=== PATIENT | male | born 1965 | race Caucasian/White ===

== ENCOUNTER 2016-04-12 16:15 | Emergency (ER) | payer OTHER ==
[2016-04-12 17:11] VITALS: BP 114/72
--- NOTE | 2016-04-12 17:29 | UC ---
Abdominal Pain Male HPI - HPI Summary HPI Summary: for past week has noted intermittent "quivering" of a muscle in epigastric area. He can actually SEE it quiver. He has checked his pulse while it was happening, and pulse is normal. Lasts up to a minute, then goes away. No pain. No SOB. No palpitations. No indigestion. He had an ETT a few years ago for CP and it was normal. No history of heart dz or hypertension. No strong FH heart disease. He wants to be sure the quivering is not his heart. - History of Current Complaint Chief Complaint: UCAbdominalPain Stated Complaint: ABDOMINAL MUSCLE SPASM Time Seen by Provider: 04/12/16 17:09 Hx Obtained From: Patient, Family/Air Quality Consultant - Onset/Duration: Gradual Onset, Lasting Weeks - 1 Timing: Intermittent Episodes Lasting: - seconds to a minute Severity Initially: Mild Severity Currently: None Location: Epigastric Radiates: No Character: Other - "muscle quivers, like when your eye twitches" Aggravating Factor(s):: Nothing Alleviating Factor(s): Spontaneous Resolution Associated Signs And Symptoms: Positive: Negative. Negative: Dizzy, Nausea, Vomiting - Risk Factors Testicular Torsion: Negative Cardiac Risk Factors: Elevated Lipids - Allergies/Home Medications Allergies/Adverse Reactions: Allergies Allergy/AdvReac Type Severity Reaction Status Date / Time No Known Allergies Allergy Verified 04/12/16 17:06 Home Medications: Home Medications Atorvastatin* [Lipitor*] 20 mg PO DAILY 04/12/16 [History Confirmed 04/12/16] PMH/Surg Hx/FS Hx/Imm Hx Endocrine History Of: Reports: Dyslipidemia - Surgical History Surgical History: Yes Surgery Procedure, Year, and Place: deviated septum age 15 yo - Family History Known Family History: Positive: Other - uncle with colon CA; CVA - Social History Occupation: Employed Full-time Lives: With Family Alcohol Use: Rare Substance Use Type: None Smoking Status (MU): Former Smoker Type: Cigarettes Have You Smoked in the Last Year: No When Did the Patient Quit Smoking/Using Tobacco: 2006 - Immunization History Most Recent Influenza Vaccination: Not the 2013/2014 season Most Recent Tetanus Shot: 2007; maybe 2010 as well Review of Systems Constitutional: Negative Skin: Negative Eyes: Negative ENT: Negative Respiratory: Negative Cardiovascular: Other - fluttering epigastrium Gastrointestinal: Negative Genitourinary: Negative Motor: Negative Neurovascular: Negative Musculoskeletal: Negative Neurological: Negative Psychological: Negative All Other Systems Reviewed And Are Negative: Yes Physical Exam Triage Information Reviewed: Yes Appearance: Well-Appearing, No Pain Distress, Well-Nourished Vital Signs: Initial Vital Signs Temp 98.7 F 04/12/16 16:51 Pulse 53 04/12/16 16:51 Resp 16 04/12/16 16:51 BP 114/72 04/12/16 16:51 Vital Signs Reviewed: Yes Eye Exam: Normal ENT Exam: Normal Respiratory Exam: Normal Cardiovascular Exam: Normal Cardiovascular: Positive: No Murmur, Pulses Normal, Brisk Capillary Refill, Bradycardia - 49 on ekg Abdominal Exam: Normal Abdomen Description: Positive: Nontender, No Organomegaly, Soft Musculoskeletal Exam: Normal Neurological Exam: Normal Psychological Exam: Normal Skin Exam: Normal Diagnostics - Laboratory Diagnostic Studies Completed/Ordered: EKG: sinus gabriela, no other abnormalities Abd Pain Male Course/Dx - Differential Dx/Clinical Impression Provider Diagnoses: muscle twitch Discharge - Discharge Plan Condition: Stable Disposition: HOME Patient Education Materials: Muscle Spasm (ED) Referrals: Raj Braga DO [Primary Care Provider] - Additional Instructions: Your EKG is normal. Follow up with your primary care doctor. YOur description of this irritation does not suggest heart problems, but if you have spells that cause pain, pressure, nausea, sweating, arm pain, or heart palpitations, go to the ER.
== END 2016-04-12 17:31 | disposition home or self-care (01) ==
LOC: UCCORT 16:15
DX: M62.838 Other muscle spasm (principal); E78.5 Hyperlipidemia, unspecified; Z87.891 Personal history of nicotine dependence
CPT/HCPCS: 93005; 99211; G0463

== ENCOUNTER 2016-08-21 17:48 | Emergency (ER) | payer OTHER ==
[2016-08-21 18:23] VITALS: BP 109/62
--- NOTE | 2016-08-21 18:41 | UC ---
Skin Complaint HPI - HPI Summary HPI Summary: patient has had red scaly patches on his hands for the last year, the areas have become thickend and cracked, has been using westcort cream with out good results. - History of Current Complaint Chief Complaint: UCSkin Time Seen by Provider: 08/21/16 18:20 Stated Complaint: FINGER INFECTION Hx Obtained From: Patient Onset/Duration: Gradual Onset, Still Present Timing: Constant Onset Severity: Moderate Current Severity: Severe Location: Hand (Right), Hand (Left) Character: Swelling, Pruritus, Pain, Redness Aggravating: Humidity, Touch Alleviating: Nothing - Allergy/Home Medications Allergies/Adverse Reactions: Allergies Allergy/AdvReac Type Severity Reaction Status Date / Time No Known Allergies Allergy Verified 08/21/16 18:14 Home Medications: Home Medications Ketorolac Tromethamine (Ophth) [Acuvail] 1 drop QID 08/21/16 [History Confirmed 08/21/16] Ofloxacin 0.3%(Ophth)(Nf) [Ocuflox OPTH 0.3%(NF)] 1 drop QID 08/21/16 [History Confirmed 08/21/16] prednisoLONE 1% OPHTH.SUSP* [Pred Forte 1%*] 1 drop .SEE ORDER QID 08/21/16 [ History Confirmed 08/21/16] Review of Systems Constitutional: Negative Skin: Other - red thickened scaly patches Eyes: Negative ENT: Negative Respiratory: Negative Cardiovascular: Negative Gastrointestinal: Negative Genitourinary: Negative Motor: Negative Neurovascular: Negative Musculoskeletal: Negative Neurological: Negative Psychological: Negative All Other Systems Reviewed And Are Negative: Yes PMH/Surg Hx/FS Hx/Imm Hx Previously Healthy: Yes - Surgical History Surgical History: Yes Surgery Procedure, Year, and Place: deviated septum age 15 yo - Family History Known Family History: Positive: Other - uncle with colon CA; CVA - Social History Alcohol Use: Daily Alcohol Amount: 2 beers Substance Use Type: None Smoking Status (MU): Former Smoker Type: Cigarettes Have You Smoked in the Last Year: No When Did the Patient Quit Smoking/Using Tobacco: 2006 - Immunization History Most Recent Influenza Vaccination: Not the 2013/2014 season Most Recent Tetanus Shot: 2007; maybe 2010 as well Physical Exam Triage Information Reviewed: Yes Appearance: Well-Appearing, Well-Nourished, Pain Distress Vital Signs: Initial Vital Signs Temp 99.4 F 08/21/16 18:01 Pulse 54 08/21/16 18:01 Resp 16 08/21/16 18:01 BP 109/62 08/21/16 18:01 Pulse Ox 98 08/21/16 18:01 Vital Signs Reviewed: Yes Eye Exam: Normal Eyes: Positive: Conjunctiva Clear ENT: Positive: Normal ENT inspection, Hearing grossly normal, Pharynx normal, TMs normal Dental Exam: Normal Neck exam: Normal Neck: Positive: Supple, Nontender, No Lymphadenopathy Respiratory Exam: Normal Respiratory: Positive: Chest non-tender, Lungs clear Cardiovascular Exam: Normal Cardiovascular: Positive: RRR, No Murmur, Pulses Normal Abdominal Exam: Normal Abdomen Description: Positive: Nontender, No Organomegaly, Soft Bowel Sounds: Positive: Present Musculoskeletal Exam: Normal Neurological Exam: Normal Neurological: Positive: Alert, Muscle Tone Normal Psychological Exam: Normal Skin: Positive: rashes - red scally crakcing areas on all knuckles, cracked red and swollen on the lateral side of right index finger. Course/Dx - Course Course Of Treatment: hx obtained, exam performed, meds reviewed, treated for ezcema and given referral to DERM - Differential Diagnoses - Skin Complaint Differential Diagnoses: Abscess, Cellulitis, Contact Dermatitis, Eczema - Diagnoses Provider Diagnoses: dyshidrotic eczema of both hands Discharge - Discharge Plan Condition: Stable Disposition: HOME Prescriptions: Cephalexin CAP* [Keflex CAP*] 500 mg PO BID #14 cap Clobetasol 0.05% OINT* 1 applic TOPICAL BID #1 tube Patient Education Materials: Dyshidrotic Eczema (ED) Referrals: Samantha Conti [Medical Doctor] - Raj Braga DO [Primary Care Provider] - Additional Instructions: 1. Use the cream as prescribed. 2. Take the antibiotic 3. Follow up with dermatology
== END 2016-08-21 18:42 | disposition home or self-care (01) ==
LOC: UCCORT 17:48
DX: L30.1 Dyshidrosis [pompholyx] (principal)
CPT/HCPCS: 99212; G0463

== ENCOUNTER 2017-03-18 12:17 | Emergency (ER) | payer OTHER ==
[2017-03-18 12:36] VITALS: BP 123/75
--- NOTE | 2017-03-18 12:45 | UC ---
Respiratory Complaint HPI - HPI Summary HPI Summary: cough, congestion, fever/chills achy all over for past day taking robitussin and ibuprofen with some relief of cough. 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 - History of Current Complaint Chief Complaint: UCGeneralIllness Stated Complaint: ACHY, EAR PAIN, COUGH Time Seen by Provider: 03/18/17 12:26 Hx Obtained From: Patient Onset/Duration: Sudden Onset Severity Initially: Moderate Severity Currently: Moderate Associated Signs And Symptoms: Positive: Chills, Nasal Congestion - Allergies/Home Medications Allergies/Adverse Reactions: Allergies Allergy/AdvReac Type Severity Reaction Status Date / Time No Known Allergies Allergy Verified 08/21/16 18:14 Home Medications: Home Medications GuaiFENesin DM sugar free* [Robitussin DM sugar free*] 10 ml PO Q6H PRN [History Confirmed 03/18/17] Ibuprofen TAB* [Advil TAB*] 600 mg PO Q6H PRN 03/18/17 [History Confirmed ] PMH/Surg Hx/FS Hx/Imm Hx Previously Healthy: Yes Endocrine History: Dyslipidemia - Surgical History Surgical History: Yes Surgery Procedure, Year, and Place: Bilateral Cataract Extraciton, 08/2016, [place]; Deviated Septum, ~1986 - Family History Known Family History: Positive: Other - uncle with colon CA; CVA - Social History Alcohol Use: Daily Alcohol Amount: 2 beers Substance Use Type: None Smoking Status (MU): Former Smoker Type: Cigarettes Have You Smoked in the Last Year: No When Did the Patient Quit Smoking/Using Tobacco: 2005 - Immunization History Most Recent Influenza Vaccination: Not the 2016/2017 Season Most Recent Tetanus Shot: 2007; maybe 2010 as well Review of Systems Constitutional: Fever, Chills, Fatigue Skin: Negative Eyes: Negative ENT: Sore Throat, Ear Ache, Nasal Discharge, Sinus Congestion Respiratory: Cough - nonproductive Cardiovascular: Negative Gastrointestinal: Negative Genitourinary: Negative Musculoskeletal: Arthralgia, Myalgia Psychological: Negative Is Patient Immunocompromised?: No All Other Systems Reviewed And Are Negative: Yes Physical Exam Triage Information Reviewed: Yes Appearance: Ill-Appearing Vital Signs: Initial Vital Signs Temp 98.5 F 03/18/17 12:28 Pulse 80 03/18/17 12:28 Resp 16 03/18/17 12:28 BP 123/75 03/18/17 12:28 Pulse Ox 100 03/18/17 12:28 Vital Signs Reviewed: Yes Eye Exam: Normal ENT: Positive: Pharyngeal erythema, Nasal congestion, TM bulging - left, Hoarse voice Neck: Positive: Supple Respiratory Exam: Normal Cardiovascular Exam: Normal Psychological Exam: Normal Skin Exam: Normal UC Diagnostic Evaluation - Laboratory O2 Sat by Pulse Oximetry: 100 Respiratory Course/Dx - Course Course Of Treatment: flu swab done by nurse - negative for flu. sinusitis/flu symptoms. increase fluid intake daily while on abx to prevent dehydration. take abx as directed with food to reduce gi upset. continue robitussin every 4 hours prn cough/congestion. continue ibuprofen every 6 hours prn for pain/ fever. f/u pcp 1 week if symptoms not resolving or getting worse - Differential Dx/Diagnosis Provider Diagnoses: sinusitis/flu symptoms Discharge - Discharge Plan Condition: Good Disposition: HOME Prescriptions: Amoxicillin PO (*) [Amoxicillin 875 MG (*)] 875 mg PO BID 10 Days #20 tab Patient Education Materials: Pharyngitis (ED), Sinusitis (ED) Forms: *Work Release Referrals: Raj Braga DO [Primary Care Provider] - 1 Week
== END 2017-03-18 13:13 | disposition home or self-care (01) ==
LOC: UCCORT 12:17
DX: J32.9 Chronic sinusitis, unspecified (principal); R05 Cough; R50.9 Fever, unspecified; Z87.891 Personal history of nicotine dependence; Z72.89 Other problems related to lifestyle
CPT/HCPCS: 87502; 99212; G0463

== ENCOUNTER 2017-04-13 07:49 | Emergency (ER) | payer OTHER ==
[2017-04-13] MEDS ORDERED: Acetaminophen TAB* 325 MG PO ONE (08:23)
--- NOTE | 2017-04-13 09:30 | UC ---
FLU HPI - HPI Summary HPI Summary: 3 DAYS OF COUGH, CONGESTION, FEVER, MYALGIAS, MALAISE. NO FLU SHOT THIS SEASON. ALSO C/O LLQ PAIN FOR THE PAST 2 DAYS. FEELS GASSY AND BLOATED. LAST BM YESTERDAY WAS NORMAL. PASSING GAS. - History of Current Complaint Chief Complaint: UCGeneralIllness Stated Complaint: ABD/BACK PAIN,ST,SOB Time Seen by Provider: 04/13/17 08:02 Hx Obtained From: Patient Onset/Duration: Gradual Onset, Lasting Days, Still Present Severity Currently: Moderate Severity Initially: Moderate Pain Intensity: 8 Pain Scale Used: 0-10 Numeric Associated Signs & Symptoms: Positive: Fever, Myalgia, Cough, Nasal Congestion - Allergy/Home Medications Allergies/Adverse Reactions: Allergies Allergy/AdvReac Type Severity Reaction Status Date / Time No Known Allergies Allergy Verified 04/13/17 07:57 PMH/Surg Hx/FS Hx/Imm Hx Endocrine History: Dyslipidemia - Surgical History Surgical History: Yes Surgery Procedure, Year, and Place: Bilateral Cataract Extraciton, 08/2016, [place]; Deviated Septum, ~1986 - Family History Known Family History: Positive: Other - uncle with colon CA; CVA - Social History Alcohol Use: Occasionally Alcohol Amount: 2 beers Substance Use Type: None Smoking Status (MU): Former Smoker Type: Cigarettes Have You Smoked in the Last Year: No When Did the Patient Quit Smoking/Using Tobacco: 2005 - Immunization History Most Recent Influenza Vaccination: Not the 2016/2017 Season Most Recent Tetanus Shot: 2007; maybe 2010 as well Review of Systems Constitutional: Fever, Chills, Fatigue ENT: Nasal Discharge Respiratory: Cough Cardiovascular: Negative Gastrointestinal: Abdominal Pain Musculoskeletal: Myalgia Neurological: Headache All Other Systems Reviewed And Are Negative: Yes Physical Exam Triage Information Reviewed: Yes Appearance: Well-Nourished, Pain Distress - moderate Vital Signs: Initial Vital Signs Temp 101 F 04/13/17 07:54 Pulse 89 04/13/17 07:54 Resp 20 04/13/17 07:54 BP 115/70 04/13/17 07:54 Pulse Ox 100 04/13/17 07:54 Vital Signs Reviewed: Yes Eyes: Positive: Conjunctiva Clear ENT: Positive: Hearing grossly normal, Pharynx normal, TMs normal Neck: Positive: Supple, Nontender, No Lymphadenopathy Respiratory Exam: Normal Cardiovascular Exam: Normal Abdomen Description: Positive: Soft, CVA Tenderness (L), Other: - TTP LLQ, NO REBOUND OR RIGIDITY. Negative: CVA Tenderness (R), Distended Bowel Sounds: Positive: Present Musculoskeletal: Positive: No Edema Neurological: Positive: Alert Psychological: Positive: Age Appropriate Behavior Skin: Negative: rashes Diagnostics - Laboratory Diagnostic Studies Completed/Ordered: FLU SWAB POSITIVE INFLUENZA A. URINE DIP SP. GR. 1.020, 2+ PROTEIN, TRACE KETONES, TRACE BLOOD, 1+ BILI - Radiology CT ABD/PELVIS W/O CONTRAST Xray Interpretation: Positive (See Comments) - 1. Nonobstructive 2 mm right renal calculus. No other calculi of urinary significance. 2. Mild gaseous distention of the colon with colonic redundancy and retained stool. Radiology Interpretation Completed By: Radiologist Flu Course/Dx - Differential Dx/Diagnosis Provider Diagnoses: 1. INFLUENZA A. 2. NEPHROLITHIASIS Discharge - Discharge Plan Condition: Stable Disposition: HOME Prescriptions: HYDROcodone/ACETAMIN 5-325 MG* [[place] 5-325 TAB*] 1 tab PO Q6H PRN #20 tab MDD 4 PRN Reason: Pain Oseltamivir CAP* [Tamiflu CAP*] 75 mg PO BID #10 cap Tamsulosin CAP* [Flomax CAP*] 0.4 mg PO DAILY #7 cap Patient Education Materials: Kidney Stones (ED), Influenza (ED) Forms: *Work Release Referrals: Raj Braga DO [Primary Care Provider] - 2 Weeks Additional Instructions: SWAB POSITIVE INFLUENZA A. TAMIFLU TWICE DAILY FOR 5 DAYS. OTC MEDS NEEDED FOR FEVER, BODY ACHES. STAY WELL HYDRATED AND RESTED. SEEK FOLLOW-UP IF YOU ARE NOT IMPROVING EXPECTED. STRAIN YOUR URINE AND FOLLOW-UP WITH UROLOGY IF YOU CATCH A STONE. GO TO THE ER WITHOUT FAIL IF YOU DEVELOP FEVER, WORSENING PAIN, NAUSEA, INABILITY TO PASS GAS OR STOOL OR ANY OTHER CONCERNING SYMPTOMS. REPEAT YOUR URINE TEST AFTER YOUR SYMPTOMS HAVE RESOLVED TO ENSURE IT IS CLEAR.
--- NOTE | 2017-04-13 10:08 | RAD ---
INDICATION: Left lower quadrant pain. Hematuria COMPARISON: None TECHNIQUE: Noncontrast axial source images were acquired from the level hemidiaphragms to the symphysis pubis as part of CT imaging for renal stone. Lung bases: The lung bases are clear. Liver: The liver is normal in size. Noncontrast imaging shows no evidence of a hepatic mass or ductal dilatation. Gallbladder: There are no calcified gallstones. There is no evidence of wall thickening or pericholecystic fluid.. Spleen: The spleen is normal in size. The noncontrast CT appearance is normal. Pancreas: Noncontrast imaging shows no pancreatic mass or ductal dilitation. Adrenal glands: No masses are identified. Kidneys/Bladder: There is a nonobstructive 2 mm calculus in the lower pole of the right kidney. There are no other calcifications of urinary significance. Noncontrast imaging shows no evidence of a renal mass. The bladder is unremarkable.. Adenopathy: There is no evidence of intraperitoneal or retroperitoneal adenopathy. Evaluation is limited without oral contrast. Fluid collections: There are no free or localized fluid collections. Vessels: The aorta and iliac vessels are normal in caliber. There are no significant atherosclerotic changes. The IVC appears normal Pelvic organs: The prostate and seminal vesicles appear normal GI tract: Evaluation of the bowel is limited without oral contrast. The upper GI tract is unremarkable. There is mild gaseous distention of the colon with retained stool and significant colonic redundancy. The ileocecal valve and appendix appear normal. There are no obstructive findings. Soft tissues: No soft tissue abnormalities of the extraperitoneal abdomen or pelvis are identified. Osseous structures: There are no acute osseous findings. IMPRESSION: 1. Nonobstructive 2 mm right renal calculus. No other calculi of urinary significance. 2. Mild gaseous distention of the colon with colonic redundancy and retained stool.
[2017-04-13 10:13] VITALS: BP 110/72
== END 2017-04-13 11:08 | disposition home or self-care (01) ==
LOC: UCCORT 07:49
DX: N20.0 Calculus of kidney (principal); J11.1 Influenza due to unidentified influenza virus with other respiratory manifestations; Z72.89 Other problems related to lifestyle; Z87.891 Personal history of nicotine dependence
CPT/HCPCS: 74176; 81003; 87502; 99212; A9270-GY; G0463

== ENCOUNTER 2018-03-22 07:43 | Emergency (ER) | payer OTHER ==
[2018-03-22 07:58] VITALS: BP 124/74
--- NOTE | 2018-03-22 08:20 | ED ---
Respiratory - HPI Summary HPI Summary: 52 yr old male with the complaint of cough, runny nose, right ear pain, myalgias , chills, fatigue. Onset of symptoms on Sunday. No SOB. 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 Symptoms are moderate - History of Current Complaint Chief Complaint: UCRespiratory Stated Complaint: BODY ACHES, NAUSEA Time Seen by Provider: 03/22/18 08:03 Pain Intensity: 3 - Allergy/Home Medications Allergies/Adverse Reactions: Allergies Allergy/AdvReac Type Severity Reaction Status Date / Time No Known Allergies Allergy Verified 03/22/18 07:52 Home Medications: Home Medications D-Methorphan/PE/Acetaminophen [Theraflu Severe Cold Mult 20-10-500 mg] 1 macarena PO DAILY PRN 03/22/18 [History Confirmed 03/22/18] PMH/Surg Hx/FS Hx/Imm Hx - Surgical History Surgery Procedure, Year, and Place: Bilateral Cataract Extraciton, 08/2016, [place]; Deviated Septum, ~1986 Infectious Disease History: No Infectious Disease History: Denies: Traveled Outside the [place] in Last 30 Days - Family History Known Family History: Positive: Other - uncle with colon CA; CVA - Social History Alcohol Use: Occasionally Alcohol Amount: 2 wine nightly usually, but not lately Substance Use Type: Reports: None Smoking Status (MU): Former Smoker Type: Cigarettes Have You Smoked in the Last Year: No Review of Systems Positive: Chills Positive: Sore Throat, Ear Ache, Nasal Discharge Positive: Cough All Other Systems Reviewed And Are Negative: Yes Physical Exam Triage Information Reviewed: Yes Vital Signs On Initial Exam: Initial Vitals Temp Pulse Resp BP Pulse Ox 99.7 F 71 16 124/74 99 03/22/18 07:54 03/22/18 07:54 03/22/18 07:54 03/22/18 07:54 03/22/18 07:54 Vital Signs Reviewed: Yes Appearance: Positive: Well-Appearing, No Pain Distress Skin: Positive: Warm, Skin Color Reflects Adequate Perfusion Head/Face: Positive: Normal Head/Face Inspection Eyes: Positive: EOMI ENT: Positive: Pharyngeal erythema, Nasal congestion, TM red - right with effusion Neck: Positive: Nontender Respiratory/Lung Sounds: Positive: Clear to Auscultation, Breath Sounds Present Cardiovascular: Positive: RRR. Negative: Murmur Abdomen Description: Negative: Distended Musculoskeletal: Positive: Strength/ROM Intact Neurological: Positive: Sensory/Motor Intact, Alert, Oriented to Person Place, Time, CN Intact II-III Psychiatric: Positive: Normal - [place] Coma Scale Best Eye Response: 4 - Spontaneous Best Motor Response: 6 - Obeys Commands Best Verbal Response: 5 - Oriented Coma Scale Total: 15 Diagnostics - Vital Signs Vital Signs Temp Pulse Resp BP Pulse Ox 03/22/18 07:54 99.7 F 71 16 124/74 99 - Laboratory Lab Statement: Any lab studies that have been ordered have been reviewed, and results considered in the medical decision making process. Disposition - Course Course Of Treatment: 52 yr old with URI and right OM. Rx with Cefdinir - Diagnoses Provider Diagnoses: Otitis media Discharge - Sign-Out/Discharge Documenting (check all that apply): Patient Departure All imaging exams completed and their final reports reviewed: No Studies - Discharge Plan Condition: Good Disposition: HOME Prescriptions: Cefdinir [Cefdinir 300 MG CAP] 300 mg PO BID #20 cap Patient Education Materials: Ear Infection (ED) Referrals: Abiodun Biswas DO [Primary Care Provider] - 2 Days - Billing Disposition and Condition Condition: GOOD Disposition: Home
== END 2018-03-22 08:26 | disposition home or self-care (01) ==
LOC: UCCORT 07:43
DX: H66.91 Otitis media, unspecified, right ear (principal); Z87.891 Personal history of nicotine dependence
CPT/HCPCS: 99212; G0463

== ENCOUNTER 2018-06-21 07:03 | Emergency (ER) | payer OTHER ==
[2018-06-21 07:16] VITALS: BP 114/70
--- NOTE | 2018-06-21 07:26 | UC ---
Ear Complaint HPI - HPI Summary HPI Summary: 53 yo male with left otalgia and decreased hearing x 2 weeks hurts to lay down BRUNA has been acting up no f/c - History of Current Complaint Chief Complaint: UCEar Stated Complaint: LEFT EAR CONCERN Time Seen by Provider: 06/21/18 07:26 Hx Obtained From: Patient Onset/Duration: Gradual Onset, Lasting Weeks Severity Initially: Mild Severity Currently: Mild Pain Intensity: 4 Pain Scale Used: 0-10 Numeric Aggravating Factors: Nothing Alleviating Factors: Nothing Associated Signs/Symptoms: Positive: URI Symptoms Related History: Seasonal Allergies - Allergies/Home Medications Allergies/Adverse Reactions: Allergies Allergy/AdvReac Type Severity Reaction Status Date / Time No Known Allergies Allergy Verified 06/21/18 07:15 Home Medications: Home Medications Ibuprofen TAB* [Motrin TAB* 600 MG] 600 mg PO Q6H PRN 06/21/18 [History Confirmed 06/21/18] PMH/Surg Hx/FS Hx/Imm Hx Previously Healthy: Yes Endocrine History: Dyslipidemia - Surgical History Surgical History: Yes Surgery Procedure, Year, and Place: Bilateral Cataract Extraciton, 08/2016, [place]; Deviated Septum, ~1986 - Family History Known Family History: Positive: Other - uncle with colon CA; CVA, Non- Contributory - Social History Alcohol Use: Daily Alcohol Amount: 3 beers daily Substance Use Type: None Smoking Status (MU): Former Smoker Type: Cigarettes Have You Smoked in the Last Year: No When Did the Patient Quit Smoking/Using Tobacco: 2005 - Immunization History Most Recent Influenza Vaccination: Not the 2016/2017 Season Most Recent Tetanus Shot: 2007; maybe 2010 as well Review of Systems All Other Systems Reviewed And Are Negative: Yes Constitutional: Positive: Negative, Fever Eyes: Positive: Negative ENT: Positive: Ear Ache, Nasal Discharge, Sinus Congestion Respiratory: Positive: Negative Cardiovascular: Positive: Negative Gastrointestinal: Positive: Negative Genitourinary: Positive: Negative Motor: Positive: Negative Neurovascular: Positive: Negative Musculoskeletal: Positive: Negative Neurological: Positive: Negative Psychological: Positive: Negative Physical Exam Triage Information Reviewed: Yes Appearance: Well-Appearing, No Pain Distress, Well-Nourished Vital Signs: Initial Vital Signs Temp 97.8 F 06/21/18 07:12 Pulse 51 06/21/18 07:12 Resp 15 06/21/18 07:12 BP 114/70 06/21/18 07:12 Pulse Ox 100 06/21/18 07:12 Vital Signs Reviewed: Yes Eyes: Positive: Conjunctiva Clear ENT: Positive: Nasal congestion, Nasal drainage, Uvula midline. Negative: Hearing grossly normal, TMs normal - left TM RETRACTED, TM bulging, TM dull, TM red, Tonsillar swelling, Tonsillar exudate, Sinus tenderness Dental Exam: Normal Neck: Positive: Supple, Nontender, No Lymphadenopathy Respiratory: Positive: Lungs clear, Normal breath sounds, No respiratory distress, No accessory muscle use Cardiovascular: Positive: RRR, No Murmur Musculoskeletal: Positive: ROM Intact, No Edema Neurological: Positive: Alert Psychological Exam: Normal Skin Exam: Normal Ear Complaint Course/Dx - Differential Dx/Diagnosis Provider Diagnosis: Dysfunction of left eustachian tube, Left serous otitis media Discharge - Sign-Out/Discharge Documenting (check all that apply): Patient Departure All imaging exams completed and their final reports reviewed: No Studies - Discharge Plan Condition: Stable Disposition: HOME Prescriptions: Fluticasone NASAL SPRAY 50MCG* [Flonase NASAL SPRAY 50MCG*] 2 spray BOTH NARES BID #1 btl predniSONE [Deltasone 20 MG TAB] 40 mg PO DAILY #10 tab Patient Education Materials: Serous Otitis Media (ED) Referrals: Abiodun Biswas DO [Primary Care Provider] - 2 Weeks - Billing Disposition and Condition Condition: STABLE Disposition: Home
== END 2018-06-21 07:38 | disposition home or self-care (01) ==
LOC: UCCORT 07:03
DX: H65.92 Unspecified nonsuppurative otitis media, left ear (principal); H69.82 Other specified disorders of Eustachian tube, left ear; E78.5 Hyperlipidemia, unspecified; Z87.891 Personal history of nicotine dependence
CPT/HCPCS: 99212; G0463